=== PATIENT | female | born 1945 | race Caucasian/White ===

== ENCOUNTER 2019-06-24 07:00 | Day surgery (SDC) | payer OTHER, BC ==
[2019-06-23 16:27] VITALS: BMI 34.4
[~2019-06-24 07:00] MED LIST: ACETAMINOPHEN 325 MG TABLET (FP) PO PRN; BSS (NA/CA/MG/K) BALANCED SALT SOLUTION OPHTH SOLN 15 ML BOTTLE OS ONE; CHONDROITIN SU A/HYALUR SOD 1 KIT IO ONE; EPINEPHrine/PF 1 MG/1 ML (1:1,000) AMPULE SQ ONE; LIDOCAINE HCL 1% PRESERVATIVE FREE - 30ML VIAL IO ONE; POVIDONE-IODINE 5% OPHTHALMIC PREP 30 ML SOLUTION OS ONE; TETRACAINE 0.5% OPHTH SOLN 2 ML BOTTLE OS ONE; TOBRAMYCIN/DEXAMETHASONE OPHTH. OINTMENT 1 TUBE OS ONE; TROPICAMIDE 1% OPHTH SOLN 15 ML BOTTLE OP SCH
[2019-06-24] MEDS ORDERED: CIPROFLOXACIN HCL 0.3% OPHTH 2.5ML BOTTLE ONE (07:15)
[2019-06-24] MEDS ORDERED: PHENYLEPHRINE 2.5% OPHTH SOLN 15 ML BOTTLE ONE (07:15)
[2019-06-24] MEDS ORDERED: KETOROLAC TROMETHAMINE 0.5% EYE DROP 1 DROP DROPS ONE (07:15)
[2019-06-24] MEDS ORDERED: CHONDROITIN SU A/HYALUR SOD 1 KIT ONE (07:16)
[2019-06-24] MEDS ORDERED: TETRACAINE 0.5% OPHTH SOLN 2 ML BOTTLE ONE (07:27)
[2019-06-24] MEDS ORDERED: EPINEPHrine/PF 1 MG/1 ML (1:1,000) AMPULE ONE (07:27)
[2019-06-24] MEDS ORDERED: TOBRAMYCIN/DEXAMETHASONE OPHTH. OINTMENT 1 TUBE ONE (07:27)
[2019-06-24] MEDS ORDERED: LIDOCAINE HCL/PF 1% SDV 5ML VIAL ONE (07:27)
[2019-06-24] MEDS ORDERED: POVIDONE-IODINE 5% OPHTHALMIC PREP 30 ML SOLUTION ONE (07:27)
--- NOTE | 2019-06-24 07:28 | HP ---
- Patient Scheduled date of Surgery: 06/24/19 Scheduled Surgical Procedure: Phacoemulsification and cataract extraction with PCIOL Affected Eye: Left Chief Complaint (Indication for surgery): Decreased vision affecting ADLs - Ocular History Other Eye History: Other (abiel) Eye Medications: vigamox Previous Eye Surgery: none - Medical History Illnesses: Diabetes (CHF, COPD, RA, sleep apnea, colon ca , afib neurogenic bladder) Allergies/Adverse Reactions: Allergies Allergy/AdvReac Type Severity Reaction Status Date / Time latex Allergy Swelling Verified 06/23/19 16:27 theophylline AdvReac Verified 06/23/19 16:27 Ocular Examination - Best Corrected Visual Acuity Distance: Right eye: 20/70 Distance: Left eye: 20/200 - External/Slit Lamp Examination Abnormalities: none - Intraocular Pressure Intraocular Pressure - Right eye: 15 Intraocular Pressure-Left eye: 15 - Lens Lens: 3+ NS vacuoles - Vitreous/Retina Vitreous/Retina: C:D 0.15 m/v/p wnl - Special Examination M - Right eye: -3.00 M - Left eye: -2.00-0.75 x 175 K - Right eye: 43.25/44.50 x 95 K - Left eye: 43.25/44.25 x 85 AL - Right eye: 23.99 AL - Left eye: 23.98 IOL bag: +19.0 AUOOTO IOL sulcus: +18.5 MN60AC IOL AC: +16.0 MTA 4uo - Impression Impression: Cataract Left Eye - Plan Plan: Phacoemulsification and cataract extraction - IOL Left eye Post-hospital care will be provided in office on: 06/25/19
[2019-06-24] MEDS: PHENYLEPHRINE 2.5% OPHTH SOLN 15 ML BOTTLE OP SCH ×3 (07:30→07:50)
[2019-06-24] MEDS: KETOROLAC TROMETHAMINE 0.5% EYE DROP 1 DROP DROPS OP SCH ×3 (07:30→07:50)
[2019-06-24] MEDS: CIPROFLOXACIN HCL 0.3% OPHTH 2.5ML BOTTLE OP SCH ×3 (07:30→07:50)
[2019-06-24] MEDS: TROPICAMIDE 1% OPHTH SOLN 15 ML BOTTLE ONE ×3 (07:30→07:50)
[2019-06-24] MEDS ORDERED: SUCCINYLCHOLINE CHLORIDE 200 MG/10 ML SYRINGE ONE (07:33)
--- NOTE | 2019-06-24 08:07 | HP ---
History & Physical Update - History History: No Change - Physical Physical: No Change - Assessment Assessment: No Change - Plan Plan: No Change (Reviewed H an P by Dr. Armando from 06/09/19 no changes)
[2019-06-24] MEDS ORDERED: MIDAZOLAM HCL 2 MG/2 ML SINGLE DOSE VIAL ONE (08:22)
[2019-06-24] MEDS ORDERED: TETRACAINE 0.5% OPHTH SOLN 2 ML BOTTLE OS ONE ×2 (08:28)
[2019-06-24] MEDS ORDERED: POVIDONE-IODINE 5% OPHTHALMIC PREP 30 ML SOLUTION OS ONE ×2 (08:30→08:31)
[2019-06-24] MEDS ORDERED: CHONDROITIN SU A/HYALUR SOD 1 KIT IO ONE ×2 (08:32)
[2019-06-24] MEDS ORDERED: BSS (NA/CA/MG/K) BALANCED SALT SOLUTION OPHTH SOLN 15 ML BOTTLE OS ONE (08:32)
[2019-06-24] MEDS ORDERED: LIDOCAINE HCL 1% PRESERVATIVE FREE - 30ML VIAL IO ONE (08:32)
[2019-06-24] MEDS ORDERED: EPINEPHrine/PF 1 MG/1 ML (1:1,000) AMPULE SQ ONE (08:43)
[2019-06-24] MEDS ORDERED: TOBRAMYCIN/DEXAMETHASONE OPHTH. OINTMENT 1 TUBE OS ONE (09:09)
--- NOTE | 2019-06-24 09:23 | OP ---
Ophthalmology Operative Note Pre-Operative Diagnosis: Cataract (mature) Affected Eye: Left Operation: Phacoemulsification and cataract extraction with PCIOL Findings: mature cataract left eye Post-Operative Diagnosis: Same as Pre-op College Archivist: None Anesthesiologist: Rodriguez Medina Anesthesia: Local, Topical Specimens Removed: none Estimated blood loss: <1 cc Drains & Tubes with Location: none Operative Report Dictated: Yes
[2019-06-24 09:43] VITALS: TEMP 98
[2019-06-24 11:42] VITALS: BP 133/48; PULSE 67
--- NOTE | 2019-06-28 15:55 | OP ---
DATE OF OPERATION: 06/24/2019 PREOPERATIVE DIAGNOSIS: Nuclear sclerotic cataract, left eye. POSTOPERATIVE DIAGNOSIS: Mature cataract, left eye. PROCEDURE: Phacoemulsification and cataract extraction with insertion of posterior chamber intraocular lens, left eye. SURGEON: Mechelle Bangura MD MICROBIOLOGY LAB ASSISTANT: None. ANESTHESIA: Topical. ANESTHESIOLOGIST: Rodriguez Medina CRNA OPERATIVE PROCEDURE: The patient received Tetracaine eye drops and was gently sedated and prepped and draped in the usual sterile fashion so as to expose only the left eye. Ophthalmic Betadine was instilled into the inferior fornix and lashes were taped out of the surgical field. An eyelid speculum was placed into the left eye. Paracentesis was made in left temporal clear cornea at the limbus. Then 0.5 mL of nonpreserved lidocaine 1% was injected into the anterior chamber and then 1 mL of dilute epinephrine 1:10,000 was injected into the anterior chamber to improve pupillary dilation. Viscoelastic material was instilled into the anterior chamber via the paracentesis. A 2.4-mm keratome blade was then used to create the main incision in temporal clear cornea at the limbus. A continuous curvilinear capsulorhexis was performed using a cystotome and Utrata forceps. Hydrodissection of the lens cortex was performed using BSS on a cannula until the nucleus was noted to be freely rotating. The phacoemulsification tip was then inserted via the main wound and used to scope 2 perpendicular grooves into the lens nucleus. The nucleus was cracked into 4 quadrants. Each quadrant was lifted out of the capsule into the iris plane and individually phacoemulsified. The remaining cortical material was then aspirated using the irrigation/aspiration port. The capsular bag was inflated using ProVisc and a preloaded AcrySof lens model AU00T0 power +19.0 diopters was injected into the capsular bag. It was centered using a Sinskey hook. The residual viscoelastic material was removed from the anterior chamber using irrigation and aspiration. The wound edges were hydrated using BSS. The wound was tested for leakage and was found to be watertight. Tobradex ointment was placed in the eye, and the speculum was removed from the eye, and the eyelid was closed. A sterile dressing and shield were placed over the eye. The patient was transferred to the recovery room in stable condition, told to follow up in 1 day. MECEHLLE BANGURA M.D. [id number]
== END 2019-06-24 10:00 | disposition home or self-care (01) ==
LOC: JASU-SURG 07:00
PROVIDERS: ATTEND Ophthalmology
PROC: 08RK3JZ Replacement of Left Lens with Synthetic Substitute, Percutaneous Approach (ICD-10-PCS; principal; 2019-06-24 08:30)
DX: H25.22 Age-related cataract, morgagnian type, left eye (principal)
CPT/HCPCS: 82962

== ENCOUNTER 2019-07-29 06:14 | Day surgery (SDC) | payer OTHER, BC ==
[2019-07-28 17:46] VITALS: BMI 34.4
[2019-07-29] MEDS ORDERED: PHENYLEPHRINE 2.5% OPHTH SOLN 15 ML BOTTLE OP SCH (06:45)
[2019-07-29] MEDS ORDERED: TROPICAMIDE 1% OPHTH SOLN 15 ML BOTTLE OP SCH (06:45)
[2019-07-29] MEDS ORDERED: ACETAMINOPHEN 325 MG TABLET (FP) PO PRN (06:45)
[2019-07-29] MEDS ORDERED: KETOROLAC TROMETHAMINE 0.5% EYE DROP 1 DROP DROPS OP SCH (06:45)
[2019-07-29] MEDS ORDERED: TROPICAMIDE 1% OPHTH SOLN 15 ML BOTTLE ONE (06:50)
[2019-07-29] MEDS ORDERED: PHENYLEPHRINE 2.5% OPHTH SOLN 15 ML BOTTLE ONE (06:50)
[2019-07-29] MEDS ORDERED: CIPROFLOXACIN HCL 0.3% OPHTH 2.5ML BOTTLE ONE (06:50)
[2019-07-29] MEDS ORDERED: KETOROLAC TROMETHAMINE 0.5% EYE DROP 1 DROP DROPS ONE (06:50)
[2019-07-29] MEDS ORDERED: KETOROLAC TROMETHAMINE 0.5% EYE DROP 1 DROP DROPS OD ONE ×3 (07:00→07:15)
[2019-07-29] MEDS ORDERED: PHENYLEPHRINE 2.5% OPHTH SOLN 15 ML BOTTLE OD ONE ×3 (07:00→07:15)
[2019-07-29] MEDS ORDERED: TROPICAMIDE 1% OPHTH SOLN 15 ML BOTTLE OD ONE ×3 (07:00→07:15)
[2019-07-29] MEDS ORDERED: CIPROFLOXACIN HCL 0.3% OPHTH 2.5ML BOTTLE OD ONE ×2 (07:00→07:10)
[2019-07-29] MEDS ORDERED: CHONDROITIN SU A/HYALUR SOD 1 KIT ONE (07:05)
[2019-07-29] MEDS ORDERED: EPINEPHrine/PF 1 MG/1 ML (1:1,000) AMPULE ONE (07:10)
[2019-07-29] MEDS ORDERED: TOBRAMYCIN/DEXAMETHASONE OPHTH. OINTMENT 1 TUBE ONE (07:10)
[2019-07-29] MEDS ORDERED: LIDOCAINE HCL/PF 1% SDV 5ML VIAL ONE (07:10)
[2019-07-29] MEDS ORDERED: POVIDONE-IODINE 5% OPHTHALMIC PREP 30 ML SOLUTION ONE (07:11)
[2019-07-29] MEDS ORDERED: TETRACAINE 0.5% OPHTH SOLN 2 ML BOTTLE ONE (07:11)
[2019-07-29] MEDS ORDERED: CIPROFLOXACIN 0.3% EYE DROPS 5 ML BOTTLE OD ONE (07:15)
--- NOTE | 2019-07-29 07:20 | HP ---
- Patient Scheduled date of Surgery: 07/29/19 Scheduled Surgical Procedure: Phacoemulsification and cataract extraction with PCIOL Affected Eye: Right Chief Complaint (Indication for surgery): Decreased vision affecting ADLs - Ocular History Other Eye History: Other (none) Eye Medications: vigamox tid od Previous Eye Surgery: s/p ce/pciol os - Medical History Illnesses: COPD, Congestive Heart Failure, Diabetes, Other (sleep apnea, afib, colon ca, dvt s/p ivc filter, pneumothorax, neurogenic bladder, decubitus ulcers , RA) Current Medications: Ambulatory Orders Amiodarone HCl 200 mg PO DAILY 06/24/19 Anodyne Lpt 2.5-2.5% Crm-Dress 1 inh IH DAILY 06/24/19 Docusate Sodium [Colace] 300 mg PO HS 06/24/19 Folic Acid 1 mg PO DAILY 06/24/19 Furosemide [Lasix] 80 mg PO DAILY 06/24/19 Gabapentin 300 mg PO Q8H 06/24/19 Insulin Glargine,Hum.rec.anlog [Lantus Solostar PEN -] 12 units SCJ HS 06/24/19 Iron 325 mg PO BID 06/24/19 Methotrexate 20 mg PO WEEKLY 06/24/19 Metolazone 2.5 mg PO DAILY 06/24/19 Omeprazole 40 mg PO BID 06/24/19 Oxybutynin Chloride 5 mg PO BID 06/24/19 Phenazopyridine HCl [Pyridium] 200 mg PO TID 06/24/19 Phenylephrine HCl/Prometh HCl [Promethazine Vc Syrup] 5 ml PO PRN PRN 06/24/19 Potassium Chloride 20 meq PO DAILY 06/24/19 Prednisone 50 MG TABLETS 5 mg PO DAILY 06/24/19 Allergies/Adverse Reactions: Allergies Allergy/AdvReac Type Severity Reaction Status Date / Time latex Allergy Swelling Verified 07/29/19 06:59 theophylline AdvReac Verified 07/29/19 06:59 Ocular Examination - Best Corrected Visual Acuity Distance: Right eye: 20/30 Distance: Left eye: 20/60 - External/Slit Lamp Examination Abnormalities: none - Intraocular Pressure Intraocular Pressure - Right eye: 15 Intraocular Pressure-Left eye: 16 - Lens Lens: 3+ NS vacuoles - Vitreous/Retina Vitreous/Retina: C:D 0.15 m/v/p wnl - Special Examination M - Right eye: -3.00 M - Left eye: +0.75-0.75 x 175 K - Right eye: 43.5/44.5 x 95 K - Left eye: 42.5/44 x85 AL - Right eye: 23.99 AL - Left eye: 23.98 IOL bag: +19.5 AUOOTO IOL sulcus: +18.5 MN60AC IOL AC: +16.0 MTA 4uo - Impression Impression: Cataract Right Eye - Plan Plan: Phacoemulsification and cataract extraction - IOL Right eye Post-hospital care will be provided in office on: 07/30/19
--- NOTE | 2019-07-29 07:22 | HP ---
History & Physical Update - History History: No Change - Physical Physical: No Change - Assessment Assessment: No Change - Plan Plan: No Change (H and P by ASHLEE Cruz reviewed from 06/09/19 no changes)
[2019-07-29] MEDS ORDERED: MIDAZOLAM HCL 2 MG/2 ML SINGLE DOSE VIAL ONE (07:54)
[2019-07-29] MEDS ORDERED: TETRACAINE 0.5% OPHTH SOLN 2 ML BOTTLE OD ONE (08:08)
[2019-07-29] MEDS ORDERED: LIDOCAINE HCL 1% PRESERVATIVE FREE - 30ML VIAL IO ONE (08:09)
[2019-07-29] MEDS ORDERED: EPINEPHrine/PF 1 MG/1 ML (1:1,000) AMPULE SQ ONE (08:11)
[2019-07-29] MEDS ORDERED: TOBRAMYCIN/DEXAMETHASONE OPHTH. OINTMENT 1 TUBE OD ONE ×2 (08:12→08:25)
--- NOTE | 2019-07-29 08:38 | OP ---
Ophthalmology Operative Note Pre-Operative Diagnosis: Mature cataract Affected Eye: Right Operation: Phacoemulsification and cataract extraction with PCIOL Findings: mature cataract right eye Post-Operative Diagnosis: Same as Pre-op Returned Goods Sorter: None Anesthesiologist: Lavinia Mantilla Anesthesia: Topical Specimens Removed: none Estimated blood loss: < 1cc Drains & Tubes with Location: none Operative Report Dictated: Yes
--- NOTE | 2019-07-29 12:10 | OP ---
DATE OF OPERATION: DATE OF DICTATION: 07/29/2019 PREOPERATIVE DIAGNOSIS: Mature cataract, right eye. POSTOPERATIVE DIAGNOSIS: Mature cataract, right eye. PROCEDURE: Phacoemulsification and cataract extraction with insertion of posterior chamber intraocular lens, right eye. SURGEON: Mechelle Bangura MD RECREATION THERAPY DIRECTOR: None. ANESTHESIA: Topical. ANESTHESIOLOGIST: Lavinia Mantilla MD OPERATIVE PROCEDURE: The patient received Tetracaine eye drops and was gently sedated and prepped and draped in the usual sterile fashion so as to expose only the right eye. Ophthalmic Betadine was instilled into the inferior fornix and lashes were taped out of the surgical field. An eyelid speculum was placed into the right eye. Paracentesis was made in superior temporal clear cornea at the limbus. Then 0.5 mL of nonpreserved lidocaine 1% was injected into the anterior chamber and then 1 mL of dilute epinephrine 1:10,000 was injected into the anterior chamber to improve pupillary dilation. Viscoelastic material was instilled into the anterior chamber via the paracentesis. A 2.4-mm keratome blade was then used to create the main incision in temporal clear cornea at the limbus. A continuous curvilinear capsulorhexis was performed using a cystotome and Utrata forceps. Hydrodissection of the lens cortex was performed using BSS on a cannula until the nucleus was noted to be freely rotating. The phacoemulsification tip was then inserted via the main wound and used to scope 2 perpendicular grooves into the lens nucleus. The nucleus was cracked into 4 quadrants. Each quadrant was lifted out of the capsule into the iris plane and individually phacoemulsified. The remaining cortical material was then aspirated using the irrigation/aspiration port. The capsular bag was inflated using ProVisc and a preloaded AcrySof lens model [id number] power +19.50 diopters was injected into the capsular bag. It was centered using a Sinskey hook. The residual viscoelastic material was removed from the anterior chamber using irrigation and aspiration. The wound edges were hydrated using BSS. The wound was tested for leakage and was found to be watertight. Tobradex ointment was placed in the eye, and the speculum was removed from the eye, and the eyelid was closed. A sterile dressing and shield were placed over the eye. The patient was transferred to the recovery room in stable condition, told to follow up in 1 day. MECHELLE BANGURA M.D. [id number]
[2019-07-29 15:15] VITALS: TEMP 97.8
[2019-07-29 15:23] VITALS: BP 115/60; PULSE 80
[2019-07-29] MEDS ORDERED: CIPROFLOXACIN HCL 0.3% OPHTH 2.5ML BOTTLE OP SCH (16:00)
== END 2019-07-29 10:00 | disposition home or self-care (01) ==
LOC: JASU-SURG 06:14
PROVIDERS: ATTEND Ophthalmology
PROC: 08RJ3JZ Replacement of Right Lens with Synthetic Substitute, Percutaneous Approach (ICD-10-PCS; principal; 2019-07-29 07:30)
DX: H25.091 Other age-related incipient cataract, right eye (principal)
CPT/HCPCS: 82962